=== PATIENT | male | born 1975 | race Caucasian/White ===

== ENCOUNTER 2017-08-02 08:58 | Emergency (ER) | payer BC, OTHER ==
[2017-08-02 09:08] VITALS: BP 139/114; PULSE 85; RESP 18; TEMP 97.5; O2SAT 94
--- NOTE | 2017-08-02 09:39 | EDPHY ---
H & P HPI/ROS: Chief complaint: Left ankle injury History of present illness: This is a 42-year-old male who presents to the emergency department for left ankle injury. Last night he was playing basketball when he twisted it. Since then he has had increasing pain and swelling, most notably to the outer aspect of the ankle. It makes it difficult to ambulate. No report of open wounds. No report of abnormal coolness or paresthesias in the foot. No report of pain or trauma in the knee, lower leg or foot. Smoking Status: Never smoked Physical Exam: General appearance: Alert, nontoxic Musculoskeletal: There is edema over the lateral malleolus. This region is tender to palpation. The rest of the ankle is mildly tender to palpation. He is ranging although this causes discomfort. The knee, lower leg and foot are nontender. Vascular exam: Normal pulses and capillary refill in the foot Neurologic exam: The patient has normal sensation and motor function distal to the injury. Constitutional: Initial Vital Signs Temperature (C) 36.4 C 08/02/17 09:05 Heart Rate 85 08/02/17 09:05 Respiratory Rate 18 08/02/17 09:05 Blood Pressure 139/114 H 08/02/17 09:05 O2 Sat (%) 94 08/02/17 09:05 O2 Delivery Mode Room Air Allergies/Adverse Reactions: No Known Allergies Allergy (Verified 08/02/17 09:05) Home Medications: Medication Instructions Recorded NK [No Known Home Meds] 08/02/17 MDM/Departure - MDM Imaging Results: Imaging Impressions Ankle X-Ray 08/02/17 09:09 Impression: Lateral ankle sprain. Imaging: I viewed and interpreted images myself ED Course/Re-evaluation: Patient seen under the supervision of my primary supervising physician Dr. Luci Gorman. Patient presents to the emergency department for evaluation of an ankle injury. His foot is neurovascularly intact. X-ray is negative. Patient placed in an Ney wrap and stirrup splint. He is on crutches. Referred to Orthopedics for recheck. Home care is discussed. Return precautions are given. Patient voiced understanding and agreement with plan. Differential Diagnosis: Included but not limited to contusion, sprain or strain, bony fracture, joint dislocation - Depart Disposition: Home, Routine, Self-Care Clinical Impression: Ankle sprain Qualifiers: Encounter type: initial encounter Involved ligament of ankle: unspecified ligament Laterality: left Qualified Code(s): S93.402A - Sprain of unspecified ligament of left ankle, initial encounter Condition: Good Instructions: Ankle Sprain (ED), Ankle Stirrup Splint (ED) Additional Instructions: Follow-up with Orthopedics next week for continued evaluation and care Use ibuprofen 600 mg 3 times a day for the next 2-3 days for pain control Ice the injury, 20 min on, 3 times daily for the next 3 days, no heat until after 72 hr Elevate the injury as much as possible If symptoms worsen or new symptoms develop return to the emergency room for recheck Referrals: Pascale Burleson MD [Primary Care Provider] - As per Instructions Iker Marcos MD [Medical Doctor] - As per Instructions
== END 2017-08-02 09:40 | disposition home or self-care (01) ==
DX: S93.402A Sprain of unspecified ligament of left ankle, initial encounter (principal); X58.XXXA Exposure to other specified factors, initial encounter; Y99.8 Other external cause status; Y93.67 Activity, basketball

== ENCOUNTER 2018-11-23 03:00 | Emergency (ER) | payer OTHER ==
[2018-11-23] MEDS ORDERED: ONDANSETRON 4 MG/2 ML VIAL ONE (03:12)
[2018-11-23] MEDS ORDERED: NS 1,000 ML IV ONE (03:15)
[2018-11-23] MEDS ORDERED: ONDANSETRON 4 MG/2 ML VIAL IVP ONE (03:15)
[2018-11-23 03:18] LABS: PLATELET COUNT 326 10^3/uL (150-400)
[2018-11-23] MEDS ORDERED: KETOROLAC 15 MG/1 ML SDV IVP ONE (03:22)
[2018-11-23] MEDS ORDERED: FAMOTIDINE 20 MG/NACL 50 ML IV ONE (03:22)
[2018-11-23] MEDS ORDERED: HYOSCYAMINE SULFATE 0.125 MG TAB PO ONE (03:43)
[2018-11-23] MEDS ORDERED: LIDOCAINE 2% VISCOUS 15 ML UDCUP PO ONE (03:43)
[2018-11-23] MEDS ORDERED: MAG HYDROX/AL HYDROX/SIMETH 30 ML UDCUP PO ONE (03:43)
--- NOTE | 2018-11-23 03:43 | EDPHY ---
H & P Stated Complaint: Upper abd pain Time Seen by Provider: 11/23/18 03:05 HPI/ROS: HPI The patient presents with diffuse abdominal pain which began around midnight tonight which felt like gas to him and is mostly in his upper abdomen the radiates to his lower abdomen as well. It is been intermittent, associated with nausea, moderate in severity. He has no prior history of similar. He had [place] food for dinner, not more spicy than usual. He has not had any diarrhea or fever. He denies any sick contacts. He has not vomited. He recently returned from [place] and there ate many fried foods and generally felt unwell when he returned. REVIEW OF SYSTEMS 10 systems were reviewed and negative with the exception of the elements mentioned in the history of present illness. PMHx: Hypertension, on losartan Soc Hx: Housed, nonsmoker PHYSICAL General Appearance: Alert, no distress Eyes: Pupils equal and round no pallor or injection ENT, Mouth: Mucous membranes moist Respiratory: There are no retractions, lungs are clear to auscultation Cardiovascular: Regular rate and rhythm Gastrointestinal: Abdomen is soft and mildly tender in the upper quadrants, no masses, bowel sounds normal Neurological: A&O, moves all extremities Skin: Warm and dry, no rashes Musculoskeletal: Neck is supple non tender Extremities: symmetrical, full range of motion Psychiatric: Patient is oriented X 3, there is no agitation Source: Patient Exam Limitations: No limitations - Personal History Current Tetanus Diphtheria and Acellular Pertussis (TDAP): Unsure - Medical/Surgical History Hx Asthma: No Hx Chronic Respiratory Disease: No Hx Diabetes: No Hx Cardiac Disease: No Hx Renal Disease: No Hx Cirrhosis: No Hx Alcoholism: No Hx HIV/AIDS: No Hx Splenectomy or Spleen Trauma: No Other PMH: denies - Social History Smoking Status: Never smoked Constitutional: Initial Vital Signs Temperature (C) 36.7 C 11/23/18 03:05 Heart Rate 77 11/23/18 03:05 Respiratory Rate 16 11/23/18 03:05 Blood Pressure 167/109 H 11/23/18 03:05 O2 Sat (%) 98 11/23/18 03:05 O2 Delivery Mode Room Air Allergies/Adverse Reactions: No Known Allergies Allergy (Verified 11/23/18 03:05) Home Medications: Medication Instructions Recorded Losartan Potassium 11/23/18 [email or web address] 11/23/18 Medical Decision Making - Diagnostics Imaging Results: Right upper quadrant ultrasound demonstrates mild hepatomegaly with no acute process, kidneys are normal bilaterally, interpreted by direct Radiology. Differential Diagnosis: 43-year-old man with hypertension presents with several hours of upper abdominal pain, intermittent which began at about midnight. Differential diagnosis includes indigestion, biliary colic, appendicitis, gastritis. In the emergency department, patient was given IV fluids and medication for his symptoms. Labs were checked and did reveal an increase in creatinine from 1.2- 2.0. UA was checked and does show trace blood and protein. Kidneys were evaluated as part of his limited abdominal ultrasound and these appeared normal. The patient does take losartan for the past 1 year, I question if this has caused him an increase in his creatinine. I reassessed the patient and he was feeling better after receiving medication. His abdominal exam has completely improved. His ultrasound was normal. He feels comfortable going home. I have advised him that he should stop his losartan at this time and have his kidney function recheck. He has an appointment with his new primary care doctor later this week. We discussed return precautions. - Data Points Laboratory Results: Laboratory Results 11/23/18 03:09 11/23/18 03:09 11/23/18 11/23/18 11/23/18 03:42 03:09 03:09 WBC 10.33 10^3/uL H 10^3/uL (3.80-9.50) RBC 4.16 10^6/uL L 10^6/uL (4.40-6.38) Hgb 13.6 g/dL L g/dL (13.7-17.5) Hct 37.5 % L % (40.0-51.0) MCV 90.1 fL fL (81.5-99.8) MCH 32.7 pg pg (27.9-34.1) MCHC 36.3 g/dL g/dL (32.4-36.7) RDW 11.5 % % (11.5-15.2) Plt Count 326 10^3/uL 10^3/uL (150-400) MPV 9.5 fL fL (8.7-11.7) Neut % (Auto) 63.3 % % (39.3-74.2) Lymph % (Auto) 19.7 % % (15.0-45.0) [place] % (Auto) 14.9 % H % (4.5-13.0) Eos % (Auto) 1.5 % % (0.6-7.6) Baso % (Auto) 0.3 % % (0.3-1.7) Nucleat RBC Rel Count 0.0 % % (0.0-0.2) Absolute Neuts (auto) 6.54 10^3/uL H 10^3/uL (1.70-6.50) Absolute Lymphs (auto) 2.04 10^3/uL 10^3/uL (1.00-3.00) Absolute Monos (auto) 1.54 10^3/uL H 10^3/uL (0.30-0.80) Absolute Eos (auto) 0.15 10^3/uL 10^3/uL (0.03-0.40) Absolute Basos (auto) 0.03 10^3/uL 10^3/uL (0.02-0.10) Absolute Nucleated RBC 0.00 10^3/uL 10^3/uL (0-0.01) Immature Gran % 0.3 % % (0.0-1.1) Immature Gran # 0.03 10^3/uL 10^3/uL (0.00-0.10) RBC/WBC/PLT Morphology TNP Platelet Estimate TNP Sodium 136 mEq/L mEq/L (135-145) Potassium 3.6 mEq/L mEq/L (3.5-5.2) Chloride 98 mEq/L mEq/L (97-110) Carbon Dioxide 23 mEq/l mEq/l (22-31) Anion Gap 15 mEq/L H mEq/L (6-14) BUN 24 mg/dL H mg/dL (7-23) Creatinine 2.1 mg/dL H mg/dL (0.7-1.3) Estimated GFR 34 Glucose 94 mg/dL mg/dL (70-100) Calcium 10.3 mg/dL mg/dL (8.5-10.4) Total Bilirubin 0.3 mg/dL mg/dL (0.1-1.4) AST 34 IU/L IU/L (17-59) ALT 37 IU/L IU/L (21-72) Alkaline Phosphatase 114 IU/L IU/L (38-126) Total Protein 7.2 g/dL g/dL (6.3-8.2) Albumin 4.5 g/dL g/dL (3.5-5.0) Lipase 187 IU/L IU/L (23-300) Urine Color PALE YELLOW Urine Appearance CLEAR Urine pH 7.0 (5.0-7.5) Ur Specific [place] 1.003 (1.002-1.030) Urine Protein 1+ H (NEGATIVE) Urine Ketones NEGATIVE (NEGATIVE) Urine Blood 1+ H (NEGATIVE) Urine Nitrate NEGATIVE (NEGATIVE) Urine Bilirubin NEGATIVE (NEGATIVE) Urine Urobilinogen NEGATIVE EU EU (0.2-1.0) Ur Leukocyte Esterase NEGATIVE (NEGATIVE) Urine RBC 1-3 /hpf /hpf (0-3) Urine WBC 1-3 /hpf /hpf (0-3) Ur Epithelial Cells NONE SEEN /lpf /lpf (NONE-1+) Urine Bacteria TRACE /hpf H /hpf (NONE SEEN) Urine Glucose NEGATIVE (NEGATIVE) Medications Given: Discontinued Medications Al Hydroxide/Mg Hydroxide (Maalox Susp) 30 ml PO ONCE ONE Stop: 11/23/18 03:44 Last Admin: 11/23/18 03:59 Dose: 30 ml Hyoscyamine Sulfate (Levsin, Hyomax-Sl) 0.25 mg PO ONCE ONE Stop: 11/23/18 03:44 Last Admin: 11/23/18 03:59 Dose: 0.25 mg Sodium Chloride (Ns) 1,000 mls @ 0 mls/hr IV EDNOW ONE; Wide Open PRN Reason: Protocol Stop: 11/23/18 03:16 Last Admin: 11/23/18 03:16 Dose: 1,000 mls Famotidine/Sodium Chloride (Pepcid 20 Mg (Premix)) 50 mls @ 200 mls/hr IV EDNOW ONE Stop: 11/23/18 03:36 Last Admin: 11/23/18 03:36 Dose: Not Given Ketorolac Tromethamine (Toradol) 15 mg IVP EDNOW ONE Stop: 11/23/18 03:23 Last Admin: 11/23/18 03:31 Dose: 15 mg Lidocaine (Lidocaine 2% Viscous) 15 ml PO ONCE ONE Stop: 11/23/18 03:44 Last Admin: 11/23/18 03:59 Dose: 15 ml Ondansetron HCl (Zofran) 4 mg IVP EDNOW ONE Stop: 11/23/18 03:16 Last Admin: 11/23/18 03:16 Dose: 4 mg Departure - Departure Disposition: Home, Routine, Self-Care Clinical Impression: Upper abdominal pain, Renal insufficiency Condition: Good Instructions: Gastritis (ED), Diet for Stomach Ulcers and Gastritis (ED) Additional Instructions: I recommend that you stop taking losartan at this point. I would like for you to follow up with her new primary care doctor about this next week. You will need to have your kidney function read checked in the next few weeks. Please maintain a bland diet today and avoid any spicy or greasy foods. Make sure to drink plenty of fluids. You can take Maalox as needed for your symptoms. Referrals: Edis Kilgore MD [Primary Care Provider] - As per Instructions
[2018-11-23 05:13] VITALS: BP 140/97
== END 2018-11-23 05:13 | disposition home or self-care (01) ==
DX: R10.10 Upper abdominal pain, unspecified (principal); R16.0 Hepatomegaly, not elsewhere classified; N28.9 Disorder of kidney and ureter, unspecified; I10 Essential (primary) hypertension; E86.9 Volume depletion, unspecified
CPT/HCPCS: 96374; J1885; J2405